=== PATIENT | male | born 1970 | race African-American/Black ===

== ENCOUNTER 2025-04-13 03:11 | Emergency (ER) | payer MEDICAID ==
[~2025-04-13] VITALS: Ht 182.9 cm; Wt 79.5 kg
[~2025-04-13 03:11] MED LIST: EMPA10TA3 PO; FURO20TA5 PO; LISI-892 PO; METO50 PO; OLAN7.5T22 PO
[2025-04-13 03:12] VITALS: BP 186/81; PULSE 72; RESP 16; TEMP 97.9; O2SAT 99
== END 2025-04-13 05:30 | disposition home or self-care (01) ==
LOC: EMS 03:11
DX: F20.9 Schizophrenia, unspecified (principal); I11.0 Hypertensive heart disease with heart failure; F32.A Depression, unspecified; F15.90 Other stimulant use, unspecified, uncomplicated; Z79.899 Other long term (current) drug therapy; Z91.0110 Allergy to milk products, unspecified
CPT/HCPCS: 99284; Z7502; Z7610